=== PATIENT | female | born 2000 | race Caucasian/White ===

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

== ENCOUNTER 2018-06-21 11:07 | Emergency (ER) | payer BC, OTHER ==
[~2018-06-21] VITALS: Ht 167.6 cm; Wt 72.0 kg
[~2018-06-21 11:07] MED LIST: ACET-704 PO
[2018-06-21 11:16] VITALS: BP 111/59
[2018-06-21] MEDS ORDERED: IV NORMAL SALINE 1,000ML 1,000 ML IV SCH (11:46)
[2018-06-21] MEDS ORDERED: ONDANSETRON PF 4 MG/2 ML VIAL. IV ONE (12:00)
[2018-06-21 12:09] LABS: BASO # 0.1 x10^3/uL (0.0-0.2); BASO % 1 % (0-3); EOS # 0.3 x10^3/uL (0.0-0.7); EOS % 4 % (0-3); HEMOGLOBIN 13.1 g/dL (12.0-15.5); LYMPH # 2.5 x10^3/uL (1.0-4.8); LYMPH % 34 % (24-48); MEAN CORPUSCULAR HEMOGLOBIN 30 pg (25-35); MEAN CORPUSCULAR HGB CONC 34 g/dL (31-37); MEAN CORPUSCULAR VOLUME 90 fL (79-100); MONO # 0.8 x10^3/uL (0.0-1.1); MONO % 11 % (0-9); NEUT # 3.8 x10^3uL (1.8-7.7); NEUT % 51 % (31-73); PLATELET COUNT 250 x10^3/uL (140-400); RED BLOOD COUNT 4.31 x10^6/uL (3.50-5.40); RED CELL DISTRIBUTION WIDTH 13.3 % (11.5-14.5); WHITE BLOOD COUNT 7.5 x10^3/uL (4.0-11.0)
--- NOTE | 2018-06-21 12:17 | PHYS DOC ---
Past History Past Medical History: No Pertinent History Past Surgical History: , Tonsillectomy, Other Additional Past Surgical Histo: knee scope Smoking: Non-smoker Alcohol Use: None Drug Use: None Adult General Chief Complaint Chief Complaint: Constipation HPI HPI Patient is a 18 year old female who presents with complaining of constipation, nausea vomiting, and fever. Patient states she did not have a bowel movement for the last 2 weeks and usually she has bowel movement every other day. Patient states she is passing gas and burping a lot but did not have any bowel movement. She also complaining of nausea and vomiting and cramping since yesterday with multiple episodes of nausea and vomiting and states she had a temperature of 103 this morning. She denies urinary symptoms, vaginal bleeding or discharge, cough and congestion, sick contact. Review of Systems Review of Systems Constitutional: Reports fever Eyes: Denies change in visual acuity, redness, or eye pain [] HENT: Denies nasal congestion or sore throat [] Respiratory: Denies cough or shortness of breath [] Cardiovascular: No additional information not addressed in HPI [] GI: Reports abdominal pain, nausea, vomiting, constipation[] : Denies dysuria or hematuria [] Musculoskeletal: Denies back pain or joint pain [] Integument: Denies rash or skin lesions [] Neurologic: Denies headache, focal weakness or sensory changes [] Endocrine: Denies polyuria or polydipsia [] All other systems were reviewed and found to be within normal limits, except as documented in this note. Current Medications Current Medications Current Medications Medications (Trade) Dose Ordered Sig/Bi Start Time Stop Time Status Last Admin Dose Admin Ketorolac Tromethamine (Toradol 30mg Vial) 30 mg 1X ONCE 06/21/18 12:15 06/21/18 12:16 UNV Ondansetron HCl (Zofran) 4 mg 1X ONCE 06/21/18 12:00 06/21/18 12:01 DC Sodium Chloride 1,000 ml @ 1,000 mls/hr Q1H 06/21/18 11:46 06/21/18 12:45 Allergies Allergies Allergies Coded Allergies Type Severity Reaction Last Updated Verified No Known Allergies Allergy Unknown 04/16/17 Yes Physical Exam Physical Exam Constitutional: Well developed, well nourished, mild distress, non-toxic appearance. [] HENT: Normocephalic, atraumatic, oropharynx moist, no oral exudates, nose normal. [] Eyes: PERRLA, EOMI, conjunctiva normal, no discharge. [] Neck: Normal range of motion, no tenderness, supple, no stridor. [] Cardiovascular:Heart rate regular rhythm, no murmur [] Lungs & Thorax: Bilateral breath sounds clear to auscultation [] Abdomen: Bowel sounds normal, soft, suprapubic and left lower quadrant guarding , no tenderness, no masses, no pulsatile masses, patient refused rectal exam.[] Skin: Warm, dry, no erythema, no rash. [] Back: No tenderness, no CVA tenderness. [] Extremities: No tenderness, no cyanosis, no clubbing, ROM intact, no edema. [] Neurologic: Alert and oriented X 3, normal motor function, normal sensory function, no focal deficits noted. [] Psychologic: Affect normal, judgement normal, mood normal. [] Current Patient Data Vital Signs Vital Signs Date Time Temp Pulse Resp B/P (MAP) Pulse Ox O2 Delivery O2 Flow Rate FiO2 06/21/18 11:16 97.9 61 20 111/59 (76) 98 Room Air Lab Results Laboratory Tests Test 06/21/18 11:56 06/21/18 12:03 White Blood Count 7.5 x10^3/uL (4.0-11.0) Red Blood Count 4.31 x10^6/uL (3.50-5.40) Hemoglobin 13.1 g/dL (12.0-15.5) Hematocrit 39.0 % (36.0-47.0) Mean Corpuscular Volume 90 fL (79-100) Mean Corpuscular Hemoglobin 30 pg (25-35) Mean Corpuscular Hemoglobin Concent 34 g/dL (31-37) Red Cell Distribution Width 13.3 % (11.5-14.5) Platelet Count 250 x10^3/uL (140-400) Neutrophils (%) (Auto) 51 % (31-73) Lymphocytes (%) (Auto) 34 % (24-48) Monocytes (%) (Auto) 11 % (0-9) H Eosinophils (%) (Auto) 4 % (0-3) H Basophils (%) (Auto) 1 % (0-3) Neutrophils # (Auto) 3.8 x10^3uL (1.8-7.7) Lymphocytes # (Auto) 2.5 x10^3/uL (1.0-4.8) Monocytes # (Auto) 0.8 x10^3/uL (0.0-1.1) Eosinophils # (Auto) 0.3 x10^3/uL (0.0-0.7) Basophils # (Auto) 0.1 x10^3/uL (0.0-0.2) POC Urine HCG, Qualitative hcg negative (Negative) EKG EKG [] Radiology/Procedures Radiology/Procedures [address] [id number] IMAGING REPORT Signed PATIENT: ERIN PUGH ACCOUNT: [id number] : 2000 LOCATION: ER AGE: 18 SEX: F EXAM STATUS: REG ER ORD. PHYSICIAN: EMILI WOOTEN MD REASON: constipation PROCEDURE: ABDOMEN SUPINE & UPRIGHT EXAM: Abdomen 2 views. HISTORY: Abdominal pain and constipation. COMPARISON: None. FINDINGS: Supine and upright views of the abdomen are obtained. There is no pneumoperitoneum. There are no distended small bowel loops or significant air fluid levels. There is gas distally. An intrauterine device is noted. IMPRESSION: 1. Possible mild constipation. No evidence of obstruction. Electronically signed by: René Louie MD (06/21/2018 12:56 PM) [facility] DICTATED AND SIGNED BY: JL LOUIE MD DATE: 06/21/18 8715 CC: TATY AGUIRRE MD; EMILI WOOTEN MD ~ Course & Med Decision Making Course & Med Decision Making Pertinent Labs and Imaging studies reviewed. (See chart for details) evaluation of patient in ER showed 18-year-old female patient with complaining of constipation and nausea and vomiting and fever. Patient did not have fever in ER. Exam and labs was unremarkable. X-ray showed constipation. Plan discharge patient home to diagnose of constipation and prescription of mag citrate and GoLYTELY and Zofran. Dragon Disclaimer Dragon Disclaimer This electronic medical record was generated, in whole or in part, using a voice recognition dictation system. Departure Departure: Impression: Primary Impression: Constipation Additional Impressions: Abdominal pain Nausea and vomiting Disposition: HOME, SELF-CARE (at 1314) Condition: IMPROVED Referrals: TATY AGUIRRE MD (PCP) Patient Instructions: Constipation, Adult, Nausea and Vomiting Additional Instructions: Drink plenty of liquids Follow-up with your primary care physician in 3-5 days Return to ER if not getting better Scripts Magnesium Citrate (MAGNESIUM CITRATE) 296 Ml Solution 296 ML PO ONCE, #296 ML Prov: EMILI WOOTEN MD 06/21/18 Ondansetron (ZOFRAN ODT) 4 Mg Tab.rapdis 1 TAB SL Q8HRS, #15 TAB Prov: EMILI WOOTEN MD 06/21/18 Peg 3350/Na Sulf,Bicarb,Cl/Kcl (GOLYTELY SOLUTION) 4,000 Ml Soln.recon 250 ML PO Q1HR, #1 MISC Prov: EMILI WOOTEN MD 06/21/18 Problem Qualifiers EMILI WOOTEN MD Jun 21, 2018 12:17
[2018-06-21 12:21] LABS: ALBUMIN 4.3 g/dL (3.4-5.0); ALBUMIN/GLOBULIN RATIO 1.6 (1.0-1.7); CALCIUM 9.4 mg/dL (8.5-10.1); CREATININE 0.7 mg/dL (0.6-1.0); GFR 106.7; POTASSIUM 4.1 mmol/L (3.5-5.1); TOTAL BILIRUBIN 0.6 mg/dL (0.2-1.0)
[2018-06-21 12:29] LABS: BILIRUBIN,URINE NEG (NEG); CLARITY,URINE HAZY; COLOR,URINE YELLOW; GLUCOSE,URINE NEG (NEG); NITRITE,URINE NEG (NEG); UROBILINOGEN,URINE 2 mg/dL (0.2 mg/dL)
[2018-06-21] MEDS ORDERED: KETOROLAC 30 MG/ML VIAL. IV ONE (12:30)
[2018-06-21 12:37] LABS: AMPHETAMINE/METHAMPHETAMINE NEG (NEG); BARBITURATES NEG (NEG); BENZODIAZEPINES NEG (NEG); CANNABINOIDS NEG (NEG); COCAINE NEG (NEG); METHADONE NEG (NEG); OPIATES NEG (NEG); PHENCYCLIDINE NEG (NEG)
--- NOTE | 2018-06-21 12:59 | RAD ---
EXAM: Abdomen 2 views. HISTORY: Abdominal pain and constipation. COMPARISON: None. FINDINGS: Supine and upright views of the abdomen are obtained. There is no pneumoperitoneum. There are no distended small bowel loops or significant air fluid levels. There is gas distally. An intrauterine device is noted. IMPRESSION: 1. Possible mild constipation. No evidence of obstruction. Electronically signed by: René Louie MD (06/21/2018 12:56 PM) [facility]
[2018-06-21] MEDS ORDERED: PEG4000S8 PO (13:17)
[2018-06-21] MEDS ORDERED: MAGN296S9 PO (13:17)
[2018-06-21] MEDS ORDERED: ONDA4TAB10 SL (13:17)
== END 2018-06-21 13:30 | disposition home or self-care (01) ==
LOC: ER 11:07
DX: K59.00 Constipation, unspecified (principal); R11.2 Nausea with vomiting, unspecified; R10.32 Left lower quadrant pain; Z98.890 Other specified postprocedural states
CPT/HCPCS: 36415; 74021; 80053; 80307; 81003; 81025; 83690; 85025; 96361; 96374; 96375; 99285; J1885; J2405; G0479; J7030

== ENCOUNTER 2019-02-11 19:27 | Emergency (ER) | payer SELFPAY ==
[~2019-02-11] VITALS: Ht 167.6 cm; Wt 63.6 kg
[~2019-02-11 19:27] MED LIST changes: +MAGN296S9 PO; +ONDA4TAB10 SL; +PEG4000S8 PO
--- NOTE | 2019-02-11 19:35 | ED.ADGEN ---
Past History Past Medical History: No Pertinent History Past Surgical History: , Tonsillectomy, Other Additional Past Surgical Histo: knee scope Smoking: Non-smoker Alcohol Use: None Drug Use: None Adult General Chief Complaint Chief Complaint ".. I ve been vomiting all the time.. 8 times today.. I vomit with smell of food.. site of food.. and just vomit.. almost like I was .. but I did 4 tests they were negative.. I did try to eat a cheese burger.. but I vomited right up..." [facility] HPI Patient is a 19 year old female who presents with above hx and complaints generalized abdomen pain. Patient's symptoms been present the past 2 days. Patient currently rates her pain as 7 out of 10. Nothing makes the pain better. Complains of some localization of pain to epigastric and right upper quadrant. There is some exacerbation of pain with deep breaths and cough.. No history immunosuppression. No history of travel. No history of trauma. No history of gallbladder problems with her family members. Patient does have a history of m igraines. Patient normally follows with Dr. Bettencourt. Review of Systems Review of Systems Constitutional: Denies fever or chills [] Eyes: Denies change in visual acuity, redness, or eye pain [] HENT: Denies nasal congestion or sore throat [] Respiratory: Denies cough or shortness of breath [] Cardiovascular: No additional information not addressed in HPI [] GI: Complaints of right upper quadrant abdominal pain, nausea, vomiting,. Pt. denies bloody stools or diarrhea [] : Denies dysuria or hematuria [] Musculoskeletal: Denies back pain or joint pain [] Integument: Denies rash or skin lesions [] Neurologic: Denies headache, focal weakness or sensory changes [] Endocrine: Denies polyuria or polydipsia [] All other systems were reviewed and found to be within normal limits, except as documented in this note. Family History Family History Noncontributory Current Medications Current Medications Current Medications Medications (Trade) Dose Ordered Sig/Bi Start Time Stop Time Status Last Admin Dose Admin Ceftriaxone Sodium 1 gm/ Sodium Chloride 50 ml @ 100 mls/hr 1X ONCE 02/11/19 20:30 02/11/19 20:59 DC 02/11/19 21:25 100 MLS/HR Ceftriaxone Sodium (Rocephin) 1 gm STK-MED ONCE 02/11/19 21:24 02/11/19 21:25 DC Cephalexin HCl (Keflex) 500 mg 1X ONCE 02/11/19 22:30 02/11/19 22:31 DC 02/11/19 22:22 500 MG Famotidine (Pepcid Vial) 20 mg 1X ONCE 02/11/19 19:45 02/11/19 19:48 DC 02/11/19 19:59 20 MG Lactated Ringer's 1,000 ml @ 1,000 mls/hr Q1H 02/11/19 19:37 02/11/19 20:36 DC 02/11/19 19:59 1,000 MLS/HR Magnesium Hydroxide (Milk Of Magnesia) 2,400 mg 1X ONCE 02/11/19 20:45 02/11/19 20:46 DC 02/11/19 21:26 2,400 MG Ondansetron HCl (Zofran) 8 mg 1X ONCE 02/11/19 19:45 02/11/19 19:48 DC 02/11/19 19:59 8 MG Potassium Chloride (KCl Oral Soln) 40 meq 1X ONCE 02/11/19 20:45 02/11/19 20:46 DC 02/11/19 21:26 40 MEQ Sodium Chloride 50 ml @ As Directed STK-MED ONCE 02/11/19 21:23 02/11/19 21:24 DC Allergies Allergies Allergies Coded Allergies Type Severity Reaction Last Updated Verified codeine Allergy Intermediate 06/21/18 Yes Physical Exam Physical Exam Constitutional: Well developed, well nourished, reports acute distress, non- toxic appearance. [] HENT: Normocephalic, atraumatic, bilateral external ears normal, oropharynx moist, no oral exudates, nose normal. [] Eyes: PERRLA, EOMI, conjunctiva normal, no discharge. [] Neck: Normal range of motion, no tenderness, supple, no stridor. [] Cardiovascular:Heart rate regular rhythm, no murmur [] Lungs & Thorax: Bilateral breath sounds equal apex with some scattered wheezes auscultation [] Abdomen: Bowel sounds normal, soft, epigastric and right upper tenderness on maya ound, complains of generalized pain to abdomen, no masses, no pulsatile masses. [] Patient declined pelvic and rectal exam Skin: Warm, dry, no erythema, no rash. [] Back: No tenderness, no CVA tenderness. [] Extremities: No tenderness, no cyanosis, no clubbing, ROM intact, no edema. [] No psoas sign. Neurologic: Alert and oriented X 3, normal motor function, normal sensory function, no focal deficits noted. [] Psychologic: Affect anxious, judgement normal, mood normal. [] Current Patient Data Vital Signs Vital Signs Date Time Temp Pulse Resp B/P (MAP) Pulse Ox O2 Delivery O2 Flow Rate FiO2 02/11/19 19:44 98.3 104 16 99 Room Air Lab Results Laboratory Tests Test 02/11/19 19:52 02/11/19 20:01 White Blood Count 9.8 x10^3/uL (4.0-11.0) Red Blood Count 4.40 x10^6/uL (3.50-5.40) Hemoglobin 13.2 g/dL (12.0-15.5) Hematocrit 39.3 % (36.0-47.0) Mean Corpuscular Volume 89 fL (79-100) Mean Corpuscular Hemoglobin 30 pg (25-35) Mean Corpuscular Hemoglobin Concent 34 g/dL (31-37) Red Cell Distribution Width 13.0 % (11.5-14.5) Platelet Count 230 x10^3/uL (140-400) Neutrophils (%) (Auto) 57 % (31-73) Lymphocytes (%) (Auto) 32 % (24-48) Monocytes (%) (Auto) 9 % (0-9) Eosinophils (%) (Auto) 1 % (0-3) Basophils (%) (Auto) 1 % (0-3) Neutrophils # (Auto) 5.5 x10^3uL (1.8-7.7) Lymphocytes # (Auto) 3.2 x10^3/uL (1.0-4.8) Monocytes # (Auto) 0.9 x10^3/uL (0.0-1.1) Eosinophils # (Auto) 0.1 x10^3/uL (0.0-0.7) Basophils # (Auto) 0.1 x10^3/uL (0.0-0.2) Urine Collection Type Unknown Urine Color Yellow Urine Clarity Hazy Urine pH 6.0 Urine Specific [place] 1.010 Urine Protein Neg (NEG-TRACE) Urine Glucose (UA) Neg mg/dL (NEG) Urine Ketones (Stick) Neg mg/dL (NEG) Urine Blood Trace (NEG) Urine Nitrite Neg (NEG) Urine Bilirubin Neg (NEG) Urine Urobilinogen Dipstick 0.2 mg/dL (0.2 mg/dL) Urine Leukocyte Esterase Trace (NEG) Urine RBC Occ /HPF (0-2) Urine WBC 1-4 /HPF (0-4) Urine Squamous Epithelial Cells Occ /LPF Urine Bacteria 0 /HPF (0-FEW) Maternal Serum HCG Beta Subunit < 1 mIU/mL (0-6) Sodium Level 141 mmol/L (136-145) Potassium Level 3.3 mmol/L (3.5-5.1) L Chloride Level 104 mmol/L (98-107) Carbon Dioxide Level 26 mmol/L (21-32) Anion Gap 11 (6-14) Blood Urea Nitrogen 6 mg/dL (7-20) L Creatinine 0.7 mg/dL (0.6-1.0) Estimated GFR (Cockcroft-Gault) 105.6 Glucose Level 83 mg/dL (70-99) Calcium Level 9.6 mg/dL (8.5-10.1) Total Bilirubin 0.6 mg/dL (0.2-1.0) Direct Bilirubin 0.1 mg/dL (0.0-0.2) Aspartate Amino Transferase (AST) 17 U/L (15-37) Alanine Aminotransferase (ALT) 19 U/L (14-59) Alkaline Phosphatase 58 U/L (46-116) Troponin I Quantitative < 0.017 ng/mL (0-0.055) Total Protein 7.4 g/dL (6.4-8.2) Albumin 4.6 g/dL (3.4-5.0) Amylase Level 30 U/L (25-115) Lipase 74 U/L (73-393) Urine Opiates Screen Neg (NEG) Urine Methadone Screen Neg (NEG) Urine Barbiturates Neg (NEG) Urine Phencyclidine Screen Neg (NEG) Urine Amphetamine/Methamphetamine Pos (NEG) Urine Benzodiazepines Screen Neg (NEG) Urine Cocaine Screen Neg (NEG) Urine Cannabinoids Screen Neg (NEG) Urine Ethyl Alcohol Neg (NEG) POC Urine HCG, Qualitative hcg negative (Negative) EKG EKG My interpretation EKG shows. Shows a sinus rate of 89. Some nonspecific anterior septal changes. But no findings acute STEMI of contralateral changes[] Radiology/Procedures Radiology/Procedures My interpretation of acute abdomen film shows no acute cardiopulmonary findings. No free air in the diaphragm. Nonobstructive bowel gas pattern. See formal report when available[] Course & Med Decision Making Course & Med Decision Making Pertinent Labs and Imaging studies reviewed. (See chart for details) Patient's discomfort and nausea and vomiting have resolved during ED visit. Patient demanding discharge. In spite of instructions for clear fluid diet patient was observed eating solids and sunflower seeds. A she encouraged to stay on a clear fluid diet only for the next 2 days. No solids or milk products. Push fruit juices. Follow-up primary care. Take Keflex 500 mg 3 times a day. Follow-up urine cultures. Return if any concerns. Patient takes Zantac 150 mg twice day. [] Final Impression Final Impression 1. Nausea and Vomiting[] 2. Abdomen pain 3. Mild hypokalemia 4. Urinary tract infection 5. Drug screen positive for methamphetamine 6. History of tobacco use. 7. Suspect gastritis/GERD Dragon Disclaimer Dragon Disclaimer This electronic medical record was generated, in whole or in part, using a voice recognition dictation system. Discharge Summary Visit Information Final Diagnosis Problems Medical Problems: (1) Gastritis Status: Acute (2) UTI (urinary tract infection) Status: Acute (3) Vomiting Status: Acute Brief Hospital Course Allergies Allergies Coded Allergies Type Severity Reaction Last Updated Verified codeine Allergy Intermediate 06/21/18 Yes Vital Signs Vital Signs Date Time Temp Pulse Resp B/P (MAP) Pulse Ox O2 Delivery O2 Flow Rate FiO2 02/11/19 19:44 98.3 104 16 99 Room Air Lab Results Laboratory Tests Test 02/11/19 19:52 02/11/19 20:01 White Blood Count 9.8 x10^3/uL (4.0-11.0) Red Blood Count 4.40 x10^6/uL (3.50-5.40) Hemoglobin 13.2 g/dL (12.0-15.5) Hematocrit 39.3 % (36.0-47.0) Mean Corpuscular Volume 89 fL (79-100) Mean Corpuscular Hemoglobin 30 pg (25-35) Mean Corpuscular Hemoglobin Concent 34 g/dL (31-37) Red Cell Distribution Width 13.0 % (11.5-14.5) Platelet Count 230 x10^3/uL (140-400) Neutrophils (%) (Auto) 57 % (31-73) Lymphocytes (%) (Auto) 32 % (24-48) Monocytes (%) (Auto) 9 % (0-9) Eosinophils (%) (Auto) 1 % (0-3) Basophils (%) (Auto) 1 % (0-3) Neutrophils # (Auto) 5.5 x10^3uL (1.8-7.7) Lymphocytes # (Auto) 3.2 x10^3/uL (1.0-4.8) Monocytes # (Auto) 0.9 x10^3/uL (0.0-1.1) Eosinophils # (Auto) 0.1 x10^3/uL (0.0-0.7) Basophils # (Auto) 0.1 x10^3/uL (0.0-0.2) Urine Collection Type Unknown Urine Color Yellow Urine Clarity Hazy Urine pH 6.0 Urine Specific [place] 1.010 Urine Protein Neg (NEG-TRACE) Urine Glucose (UA) Neg mg/dL (NEG) Urine Ketones (Stick) Neg mg/dL (NEG) Urine Blood Trace (NEG) Urine Nitrite Neg (NEG) Urine Bilirubin Neg (NEG) Urine Urobilinogen Dipstick 0.2 mg/dL (0.2 mg/dL) Urine Leukocyte Esterase Trace (NEG) Urine RBC Occ /HPF (0-2) Urine WBC 1-4 /HPF (0-4) Urine Squamous Epithelial Cells Occ /LPF Urine Bacteria 0 /HPF (0-FEW) Maternal Serum HCG Beta Subunit < 1 mIU/mL (0-6) Sodium Level 141 mmol/L (136-145) Potassium Level 3.3 mmol/L (3.5-5.1) Chloride Level 104 mmol/L (98-107) Carbon Dioxide Level 26 mmol/L (21-32) Anion Gap 11 (6-14) Blood Urea Nitrogen 6 mg/dL (7-20) Creatinine 0.7 mg/dL (0.6-1.0) Estimated GFR (Cockcroft-Gault) 105.6 Glucose Level 83 mg/dL (70-99) Calcium Level 9.6 mg/dL (8.5-10.1) Total Bilirubin 0.6 mg/dL (0.2-1.0) Direct Bilirubin 0.1 mg/dL (0.0-0.2) Aspartate Amino Transf (AST/SGOT) 17 U/L (15-37) Alanine Aminotransferase (ALT/SGPT) 19 U/L (14-59) Alkaline Phosphatase 58 U/L (46-116) Troponin I Quantitative < 0.017 ng/mL (0-0.055) Total Protein 7.4 g/dL (6.4-8.2) Albumin 4.6 g/dL (3.4-5.0) Amylase Level 30 U/L (25-115) Lipase 74 U/L (73-393) Urine Opiates Screen Neg (NEG) Urine Methadone Screen Neg (NEG) Urine Barbiturates Neg (NEG) Urine Phencyclidine Screen Neg (NEG) Urine Amphetamine/Methamphetamine Pos (NEG) Urine Benzodiazepines Screen Neg (NEG) Urine Cocaine Screen Neg (NEG) Urine Cannabinoids Screen Neg (NEG) Urine Ethyl Alcohol Neg (NEG) Bedside Urine HCG, Qualitative hcg negative (Negative) Brief Hospital Course Ms. Sol is a 19 old female who presented with Nausea/Vomiting and Abd. pain. Discharge Information Condition at Discharge: Improved, Stable Disposition/Orders: D/C to Home Dischare Medications Current Medications Lactated Ringer's 1,000 ml @ 1,000 mls/hr Q1H IV Last administered on 02/11at 19:59; Admin Dose 1,000 MLS/HR; Start 02/11/19 at 19:37; Stop 02/11/19 at 20:36; Status DC Ondansetron HCl (Zofran) 8 mg 1X ONCE IV Last administered on 02/11/19at 19:59; Admin Dose 8 MG; Start 02/11/19 at 19:45; Stop 02/11/19 at 19:48; Status DC Famotidine (Pepcid Vial) 20 mg 1X ONCE IVP Last administered on 02/11/19at 19:59; Admin Dose 20 MG; Start 02/11/19 at 19:45; Stop 02/11/19 at 19:48; Status DC Ceftriaxone Sodium 1 gm/ Sodium Chloride 50 ml @ 100 mls/hr 1X ONCE IV Last administered on 02/11/19at 21:25; Admin Dose 100 MLS/HR; Start 02/11/19 at 20:30; Stop 02/11/19 at 20:59; Status DC Magnesium Hydroxide (Milk Of Magnesia) 2,400 mg 1X ONCE PO Last administered on 02/11/19at 21:26; Admin Dose 2,400 MG; Start 02/11/19 at 20:45; Stop 02/11/19 at 20:46; Status DC Potassium Chloride (KCl Oral Soln) 40 meq 1X ONCE PO Last administered on 02/11/19at 21:26; Admin Dose 40 MEQ; Start 02/11/19 at 20:45; Stop 02/11/19 at 20:46; Status DC Sodium Chloride 50 ml @ As Directed STK-MED ONCE .ROUTE ; Start 02/11/19 at 21:23; Stop 02/11/19 at 21:24; Status DC Ceftriaxone Sodium (Rocephin) 1 gm STK-MED ONCE .ROUTE ; Start 02/11/19 at 21:24; Stop 02/11/19 at 21:25; Status DC Cephalexin HCl (Keflex) 500 mg 1X ONCE PO Last administered on 02/11/19at 22:22; Admin Dose 500 MG; Start 02/11/19 at 22:30; Stop 02/11/19 at 22:31; Status DC Active Scripts Active Zantac (Ranitidine Hcl) 150 Mg Tablet 150 Mg PO BID 30 Days Zofran (Ondansetron Hcl) 8 Mg Tablet 8 Mg PO QIDPRN PRN Keflex (Cephalexin) 500 Mg Capsule 500 Mg PO TID 7 Days Magnesium Citrate 296 Ml Solution 296 Ml PO ONCE Zofran Odt (Ondansetron) 4 Mg Tab.rapdis 1 Tab SL Q8HRS Golytely Solution (Peg 3350/Na Sulf,Bicarb,Cl/Kcl) 4,000 Ml Soln.recon 250 Ml PO Q1HR Tylenol With Codeine #3 Tablet (Acetaminophen With Codeine) 1 Each Tablet 1 Tab PO Q6HRS PRN 1 Days Dragon Disclaimer This chart was dictated in whole or in part using Voice Recognition software in a busy, high-work load, and often noisy Emergency Department environment. It may contain unintended and wholly unrecognized errors or omissions. MEMO BYRD MD February 11, 2019 19:34
[2019-02-11] MEDS ORDERED: IV RINGERS SOLUTION,LACTATED 1,000 ML IV SCH (19:37)
[2019-02-11] MEDS ORDERED: FAMOTIDINE 20 MG/2 ML VIAL IVP ONE (19:45)
[2019-02-11] MEDS ORDERED: ONDANSETRON PF 4 MG/2 ML VIAL. IV ONE (19:45)
--- NOTE | 2019-02-11 20:07 | EKG ---
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
[2019-02-11 20:14] LABS: BACTERIA,URINE 0 /HPF (0-FEW); BASO # 0.1 x10^3/uL (0.0-0.2); BASO % 1 % (0-3); BILIRUBIN,URINE NEG (NEG); CLARITY,URINE HAZY; COLOR,URINE YELLOW; EOS # 0.1 x10^3/uL (0.0-0.7); EOS % 1 % (0-3); GLUCOSE,URINE NEG (NEG); HEMATOCRIT 39.3 % (36.0-47.0); HEMOGLOBIN 13.2 g/dL (12.0-15.5); LYMPH # 3.2 x10^3/uL (1.0-4.8); LYMPH % 32 % (24-48); MEAN CORPUSCULAR HEMOGLOBIN 30 pg (25-35); MEAN CORPUSCULAR HGB CONC 34 g/dL (31-37); MEAN CORPUSCULAR VOLUME 89 fL (79-100); MONO # 0.9 x10^3/uL (0.0-1.1); MONO % 9 % (0-9); NEUT # 5.5 x10^3uL (1.8-7.7); NEUT % 57 % (31-73); NITRITE,URINE NEG (NEG); PLATELET COUNT 230 x10^3/uL (140-400); RBC,URINE OCC /HPF (0-2); SQUAMOUS EPITHELIAL CELL,UR OCC /LPF; UROBILINOGEN,URINE 0.2 mg/dL (0.2 mg/dL); WHITE BLOOD COUNT 9.8 x10^3/uL (4.0-11.0)
[2019-02-11 20:17] LABS: AMPHETAMINE/METHAMPHETAMINE POS (NEG); BARBITURATES NEG (NEG); BENZODIAZEPINES NEG (NEG); CANNABINOIDS NEG (NEG); COCAINE NEG (NEG); METHADONE NEG (NEG); OPIATES NEG (NEG); PHENCYCLIDINE NEG (NEG)
[2019-02-11 20:25] LABS: ALBUMIN 4.6 g/dL (3.4-5.0); CALCIUM 9.6 mg/dL (8.5-10.1); CREATININE 0.7 mg/dL (0.6-1.0); DIRECT BILIRUBIN 0.1 mg/dL (0.0-0.2); GFR 105.6; POTASSIUM 3.3 mmol/L (3.5-5.1); TOTAL BILIRUBIN 0.6 mg/dL (0.2-1.0); TOTAL PROTEIN 7.4 g/dL (6.4-8.2)
[2019-02-11] MEDS ORDERED: RANI150T21 PO (20:38)
[2019-02-11] MEDS ORDERED: CEPH-264 PO (20:38)
[2019-02-11] MEDS ORDERED: ONDA8TAB9 PO (20:38)
[2019-02-11] MEDS ORDERED: MAGNESIUM HYDROXIDE 2,400 MG/30 ML ORAL.SUSP. PO ONE (20:45)
[2019-02-11] MEDS ORDERED: POTASSIUM CHLORIDE 20 MEQ/15 ML ORAL LIQUID. PO ONE (20:45)
[2019-02-11] MEDS ORDERED: IV NORMAL SALINE 50ML 50 ML ONE (21:23)
[2019-02-11] MEDS ORDERED: cefTRIAXone SODIUM 1 GM VIAL ONE (21:24)
[2019-02-11] MEDS ORDERED: CEPHALEXIN 250 MG CAPSULE PO ONE (22:30)
--- NOTE | 2019-02-12 00:57 | RAD ---
Acute abdominal series to include a PA chest radiograph 02/11/2019 Clinical History: Nausea and vomiting. Abdominal pain. A PA digital radiograph of the chest was obtained. Supine and erect AP digital radiographs of the abdomen/pelvis were obtained. Comparison study is dated 06/21/2018. The cardiac and mediastinal silhouettes are within normal limits in size and configuration. No pulmonary infiltrate is seen. No pleural effusion or pneumothorax is noted. The abdominal bowel gas pattern is nonobstructive. A moderate amount stool seen throughout the colon. There is no evidence of free air. No radiopaque calculus is seen. The osseous structures are grossly intact. Impression: Nonobstructive bowel gas pattern. Electronically signed by: Tony Goss MD (02/12/2019 12:54 AM) [facility]
== END 2019-02-11 22:20 | disposition home or self-care (01) ==
LOC: ER 19:27
DX: K29.70 Gastritis, unspecified, without bleeding (principal); N39.0 Urinary tract infection, site not specified; E87.6 Hypokalemia; F15.10 Other stimulant abuse, uncomplicated; Z98.890 Other specified postprocedural states; Z88.5 Allergy status to narcotic agent
CPT/HCPCS: 36415; 74022; 80048; 80076; 80307; 81001; 81025; 82150; 83690; 84484; 84702; 85025; 87086; 93005; 96361; 96365; 96375; 99285; J0696; J2405; J3490; J7120; 87186

== ENCOUNTER → 2019-07-07 | Outpatient (CLI) | payer MEDICAID ==
[2019-02-11 19:44] VITALS: BP 127/66
[~2019-07-07] MED LIST changes: +CEPH-264 PO; +ONDA8TAB9 PO; +RANI-376 PO
--- NOTE | 2019-07-07 15:01 | RAD ---
EXAM: Pelvic sonogram. HISTORY: Dysfunctional uterine bleeding. TECHNIQUE: Sonographic imaging of the pelvis was performed. COMPARISON: None. FINDINGS: The uterus measures 7.5 x 3.8 x 4.2 cm. The endometrial stripe measures 3 mm in thickness. There is complex fluid within the endometrial cavity in the lower uterine segment. There is a 3.6 cm simple appearing right ovarian cyst. There are small ovarian follicles. There is normal blood flow within both ovaries. There is a small amount of free fluid with internal echoes within the cul-de-sac. IMPRESSION: 1. 3.6 cm right ovarian cyst. 2. Small amount of complex fluid within the endometrial cavity, likely due to blood products given a history of dysfunctional uterine bleeding. The endometrial stripe is normal in thickness. 3. Small amount of complex free fluid within the cul-de-sac. Electronically signed by: Piedad Mendoza MD (07/07/2019 2:58 PM) [facility]
== END | disposition home or self-care (01) ==
LOC: US 11:47
PROVIDERS: ATTEND Physician Assistant Medical
DX: N83.201 Unspecified ovarian cyst, right side (principal); N93.8 Other specified abnormal uterine and vaginal bleeding
CPT/HCPCS: 76830; 76856

== ENCOUNTER 2020-05-31 19:01 | Emergency (ER) | payer MEDICAID ==
[~2020-05-31] VITALS: Ht 170.2 cm; Wt 72.7 kg
[~2020-05-31 19:01] MED LIST changes: +MAGN296S68 PO; -MAGN296S9 PO
[2020-05-31] MEDS ORDERED: IV NORMAL SALINE 1,000ML 1,000 ML IV ONE (19:15)
[2020-05-31] MEDS ORDERED: PANTOPRAZOLE IV 40 MG VIAL. IVP ONE (19:30)
[2020-05-31] MEDS ORDERED: FAMOTIDINE 20 MG/2 ML VIAL IVP ONE (19:30)
[2020-05-31] MEDS ORDERED: METOCLOPRAMIDE 10 MG TABLET PO ONE (19:30)
[2020-05-31] MEDS ORDERED: MORPHINE SULFATE 4 MG/ML DISP.SYRIN. IV ONE (19:30)
--- NOTE | 2020-05-31 19:35 | PHYS DOC ---
Past History Past Medical History: Endometriosis Past Surgical History: , Other Additional Past Surgical Histo: uterine ablasion, knee x 3 Smoking: Non-smoker Alcohol Use: Occasionally Drug Use: None General Adult EDM: Chief Complaint: NAUSEA/VOMITING/DIARRHEA HPI: HPI: The history was obtained from the patient. Patient is a 20-year-old female with past medical history notable for section and endometriosis Who presents with a chief complaint of epigastric abdominal pain for the past 24 hours. Patient states she woke up yesterday with epigastric sharp pain that is nonradiating. States eating food makes the pain worse. She was not able eat dinner night due to the discomfort. She notes 3 episodes of nonbloody nonbilious emesis today. Denies any history of gastritis, dyspepsia, or biliary colic. Denies any history of gallbladder issues. Denies chest pain or shortness breath. States that she did have a syncopal event while in the shower 4 days ago. She denies any prodrome symptoms leading up to this. She is never syncopized before. She is unsure of the first day of her last menstrual period. Denies any vaginal bleeding or discharge. Denies urinary symptoms. Denies fevers. Has not tried medicine at home to help. Denies daily alcohol consumption or drug use. Endorses tobacco abuse. No other complaints. Review of Systems: Review of Systems: Constitutional: Denies fever or chills Eyes: Denies change in visual acuity HENT: Denies nasal congestion or sore throat Respiratory: Denies cough or shortness of breath Cardiovascular: Positive for syncope GI: Positive for abdominal pain and vomiting : Denies dysuria Musculoskeletal: Denies back pain or joint pain Integument: Denies rash Neurologic: Denies headache, focal weakness or sensory changes Endocrine: Denies polyuria or polydipsia Lymphatic: Denies swollen glands Psychiatric: Denies depression or anxiety Heart Score: Risk Factors: Risk Factors: DM, Current or recent (<one month) smoker, HTN, HLP, family history of CAD, obesity. Risk Scores: Score 0 - 3: 2.5% MACE over next 6 weeks - Discharge Home Score 4 - 6: 20.3% MACE over next 6 weeks - Admit for Clinical Observation Score 7 - 10: 72.7% MACE over next 6 weeks - Early Invasive Strategies Current Medications: Current Meds: Current Medications Medications (Trade) Dose Ordered Sig/Bi Start Time Stop Time Status Last Admin Dose Admin Famotidine (Pepcid Vial) 20 mg 1X ONCE 05/31/20 19:30 05/31/20 19:31 UNV Metoclopramide HCl (Reglan) 10 mg 1X ONCE 05/31/20 19:30 05/31/20 19:31 UNV Morphine Sulfate (Morphine 4mg Syringe) 4 mg 1X ONCE 05/31/20 19:30 05/31/20 19:31 UNV Pantoprazole Sodium (Protonix Vial) 40 mg 1X ONCE 05/31/20 19:30 05/31/20 19:31 UNV Sodium Chloride 1,000 ml @ 1,000 mls/hr 1X ONCE 05/31/20 19:15 05/31/20 20:14 Allergies: Allergies: Allergies Coded Allergies Type Severity Reaction Last Updated Verified codeine Allergy Intermediate 06/21/18 Yes Physical Exam: PE: Constitutional: Well developed, well nourished, no acute distress, non-toxic appearance. [] HENT: Normocephalic, atraumatic, bilateral external ears normal, oropharynx moist, no oral exudates, nose normal. [] Eyes: PERRLA, EOMI, conjunctiva normal, no discharge. [] Neck: Normal range of motion, no tenderness, supple, no stridor. [] Cardiovascular:Heart rate regular rhythm, no murmur [] Lungs & Thorax: Bilateral breath sounds clear to auscultation [] Abdomen: Mild epigastric tenderness to palpation. No involuntary guarding or rigidity noted. No acute peritonitis. Skin: Warm, dry, no erythema, no rash. [] Back: No tenderness, no CVA tenderness. [] Extremities: No tenderness, no cyanosis, no clubbing, ROM intact, no edema. [] Neurologic: Alert with intact cognitive function. No aphasia, dysarthria, or neglect. GCS 15. Pupils 3 mm briskly reactive b/l. No APD present. Cranial nerves 2-12 grossly intact; no facial asymmetry present, tongue midline, shoulder shrugging strength intact. Strength 5/5 and symmetric throughout. Light touch sensation intact throughout. Cerebellar testing appropriate without evidence of dysdiadochokinesia. DTR's 2+ in all 4 extremities. Negative pronator drift bilaterally. Gait normal Psychologic: Affect normal, judgement normal, mood normal. [] Current Patient Data: Labs: Laboratory Tests Test 05/31/20 19:26 POC Urine HCG, Qualitative hcg negative (Negative) Vital Signs: Vital Signs Date Time Temp Pulse Resp B/P (MAP) Pulse Ox O2 Delivery O2 Flow Rate FiO2 05/31/20 19:05 97.7 66 18 99/53 (68) 99 Room Air EKG: EKG: [] EKG consistent with normal sinus rhythm. Ventricular rate of 62 bpm. [place] normal. Flipped T waves noted in lead III and V3. No acute ischemic changes noted. Radiology/Procedures: Radiology/Procedures: [][address] [address] IMAGING REPORT Signed PATIENT: ERIN BARRAZA ACCOUNT: [id number] : 2000 LOCATION: ER AGE: 20 SEX: F EXAM STATUS: REG ER ORD. PHYSICIAN: MADDI PRADHAN DO REASON: epigastric pain with vomiting PROCEDURE: CT ABD PELV W/ IV CONTRST ONLY EXAM: CT Abdomen and Pelvis with IV contrast CLINICAL HISTORY: epigastric pain with Vomiting COMPARISON: 07/11/2015 TECHNIQUE: Helical CT of the abdomen and pelvis was performed following the administration of IV contrast. Axial, coronal and sagittal reformatted images were generated. ---PQRS compliance statement - One or more of the following individualized dose reduction techniques were utilized for this study: 1. Automated exposure control 2. Adjustment of the mA and/or kV according to patient size 3. Use of iterative reconstruction technique--- FINDINGS: Lower chest: Clear Abdomen and pelvis: Liver and biliary system: No focal liver lesion. Gallbladder is normal. No biliary ductal dilatation. Spleen: Unremarkable Pancreas: Unremarkable Adrenal glands: Unremarkable Kidneys: Symmetric nephrograms. No focal renal lesion. No hydronephrosis. No hydroureter. Lymph nodes/retroperitoneum: No abdominal or pelvic lymphadenopathy. Vessels: Aorta is normal in caliber. Circumaortic left renal vein. Bowel/Peritoneal cavity: Appendix is normal. Moderate colonic stool content is seen. No small or large bowel dilatation. No bowel obstruction. Trace pelvic ascites may be physiologic. Mild apparent thickening of the gastric antrum. Right adnexal cyst measures 3.5 cm. Abdominal wall: Trace fat-containing periumbilical hernia is seen. Bladder: Unremarkable trace free pelvic fluid Bones: No aggressive osseous lesion is seen. IMPRESSION: 1. Mild thickening of the gastric antrum may be related to under distended state although gastritis may also result in this appearance. 2. Right adnexal cyst measures 2.5 cm. This can be further assessed by ultrasound. 3. Trace pelvic ascites likely physiologic Electronically signed by: Denver Mondragon MD (05/31/2020 9:12 PM) [facility] DICTATED AND SIGNED BY: DENVER MONDRAGON MD DATE: 05/31/202111 CC: MIGUEL A ANAYA; MADDI PRADHAN DO ~ Course & Med Decision Making: Course & Med Decision Making Pertinent Labs and Imaging studies reviewed. (See chart for details) [] Patient is an overall well-appearing 20-year-old female who presents with chief complaint of diffuse abdominal discomfort associated with nausea. Initial vital signs unremarkable. EKG was obtained given her report of syncope 4 days ago. This was unremarkable. Labs grossly unremarkable. CT imaging reveals no acute surgical abnormality. Prior to being able to discuss results of labs and imaging with the patient she did department emergency department. She did elect to leave AGAINST MEDICAL ADVICE prior to my final repeat evaluation. Za Disclaimer: Za Disclaimer: This electronic medical record was generated, in whole or in part, using a voice recognition dictation system. Departure Departure: Impression: Primary Impression: Abdominal pain Qualified Codes: R10.84 - Generalized abdominal pain Disposition: AGAINST MEDICAL ADVICE Condition: STABLE Referrals: MIGUEL A ANAYA (PCP) Justification of Admission: Justification of Admission: Justification of Admission Dx: N/A MADDI PRADHAN DO May 31, 2020 19:35
[2020-05-31] MEDS ORDERED: METOCLOPRAMIDE HCL 10 MG/2 ML VIAL. ONE (19:42)
[2020-05-31] MEDS ORDERED: MORPHINE SULFATE 4 MG/ML DISP.SYRIN. ONE (19:42)
[2020-05-31] MEDS ORDERED: FAMOTIDINE 20 MG/2 ML VIAL ONE (19:42)
[2020-05-31] MEDS ORDERED: IOHEXOL 300 MG/ML 75 ML VIAL. IV ONE (19:45)
[2020-05-31] MEDS ORDERED: METOCLOPRAMIDE HCL 10 MG/2 ML VIAL. IVP ONE (20:00)
[2020-05-31 20:22] VITALS: BP 98/55
[2020-05-31 20:29] LABS: BASO # 0.1 x10^3/uL (0.0-0.2); BASO % 1 % (0-3); EOS # 0.3 x10^3/uL (0.0-0.7); EOS % 3 % (0-3); HEMATOCRIT 38.1 % (36.0-47.0); HEMOGLOBIN 12.8 g/dL (12.0-15.5); LYMPH # 2.7 x10^3/uL (1.0-4.8); LYMPH % 28 % (24-48); MEAN CORPUSCULAR HEMOGLOBIN 31 pg (25-35); MEAN CORPUSCULAR HGB CONC 34 g/dL (31-37); MEAN CORPUSCULAR VOLUME 93 fL (79-100); MONO % 10 % (0-9); NEUT # 5.7 x10^3uL (1.8-7.7); NEUT % 59 % (31-73); PLATELET COUNT 213 x10^3/uL (140-400); RED BLOOD COUNT 4.09 x10^6/uL (3.50-5.40); RED CELL DISTRIBUTION WIDTH 12.7 % (11.5-14.5); WHITE BLOOD COUNT 9.7 x10^3/uL (4.0-11.0)
[2020-05-31 20:58] LABS: BILIRUBIN,URINE NEG (NEG); CLARITY,URINE HAZY; COLOR,URINE YELLOW; GLUCOSE,URINE NEG (NEG)
[2020-05-31 20:58] LABS: CALCIUM 8.3 mg/dL (8.5-10.1); CREATININE 0.8 mg/dL (0.6-1.0); GFR 89.7; POTASSIUM 3.9 mmol/L (3.5-5.1)
[2020-05-31 20:59] LABS: NITRITE,URINE NEG (NEG); UROBILINOGEN,URINE 0.2 mg/dL (0.2 mg/dL)
[2020-05-31 21:10] LABS: ALBUMIN 3.5 g/dL (3.4-5.0); ALBUMIN/GLOBULIN RATIO 1.2 (1.0-1.7); MAGNESIUM 1.8 mg/dL (1.8-2.4); TOTAL BILIRUBIN 0.2 mg/dL (0.2-1.0); TOTAL PROTEIN 6.4 g/dL (6.4-8.2)
[2020-05-31 21:10] LABS: BACTERIA,URINE MOD /HPF (0-FEW); SQUAMOUS EPITHELIAL CELL,UR FEW /LPF
--- NOTE | 2020-05-31 21:15 | RAD ---
EXAM: CT Abdomen and Pelvis with IV contrast CLINICAL HISTORY: epigastric pain with Vomiting COMPARISON: 07/11/2015 TECHNIQUE: Helical CT of the abdomen and pelvis was performed following the administration of IV contrast. Axial, coronal and sagittal reformatted images were generated. ---PQRS compliance statement - One or more of the following individualized dose reduction techniques were utilized for this study: 1. Automated exposure control 2. Adjustment of the mA and/or kV according to patient size 3. Use of iterative reconstruction technique--- FINDINGS: Lower chest: Clear Abdomen and pelvis: Liver and biliary system: No focal liver lesion. Gallbladder is normal. No biliary ductal dilatation. Spleen: Unremarkable Pancreas: Unremarkable Adrenal glands: Unremarkable Kidneys: Symmetric nephrograms. No focal renal lesion. No hydronephrosis. No hydroureter. Lymph nodes/retroperitoneum: No abdominal or pelvic lymphadenopathy. Vessels: Aorta is normal in caliber. Circumaortic left renal vein. Bowel/Peritoneal cavity: Appendix is normal. Moderate colonic stool content is seen. No small or large bowel dilatation. No bowel obstruction. Trace pelvic ascites may be physiologic. Mild apparent thickening of the gastric antrum. Right adnexal cyst measures 3.5 cm. Abdominal wall: Trace fat-containing periumbilical hernia is seen. Bladder: Unremarkable trace free pelvic fluid Bones: No aggressive osseous lesion is seen. IMPRESSION: 1. Mild thickening of the gastric antrum may be related to under distended state although gastritis may also result in this appearance. 2. Right adnexal cyst measures 2.5 cm. This can be further assessed by ultrasound. 3. Trace pelvic ascites likely physiologic Electronically signed by: Denver Bell MD (05/31/2020 9:12 PM) ALBERT
--- NOTE | 2020-06-02 07:04 | EKG ---
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
== END 2020-05-31 20:30 | disposition left against medical advice (07) ==
LOC: ER 19:01
DX: R10.84 Generalized abdominal pain (principal); R10.13 Epigastric pain; R55 Syncope and collapse; R11.10 Vomiting, unspecified; Z98.890 Other specified postprocedural states; Z88.5 Allergy status to narcotic agent
CPT/HCPCS: 36415; 74177; 80053; 81001; 81025; 83735; 85025; 87077; 87086; 87186; 93005; 96361; 96374; 96375; 99285; C9113; J2270; J2765; J3490; J7030; Q9967

== ENCOUNTER → 2020-11-08 | Outpatient (CLI) | payer MEDICAID ==
--- NOTE | 2020-11-08 08:27 | RAD ---
EXAMINATION: US PELVIS COMPLETE (PELVIC ULTRASOUND) HISTORY: LT SIDE PELVIC PAIN, IUD TECHNIQUE: Sonography of the pelvis was performed by transabdominal technique. COMPARISON: CT abdomen/pelvis 05/31/2020, pelvic ultrasound 07/07/2019 FINDINGS: Uterus: 8.8 x 4.7 x 3.3 cm - Myometrium: Normal sonographic appearance. - Endometrium: IUD in place. - Cervix: Unremarkable. Right ovary: 5.6 x 4.9 x 3.4 cm - Normal sonographic appearance with 4.1 cm simple appearing cyst, previously 3.6 cm. Arterial and ve nous flow is present throughout the ovary on color Doppler imaging with normal spectral waveforms. Left ovary: 4.0 x 2.2 x 2.7 cm - Normal sonographic appearance. Arterial and venous flow is present throughout the left ovary on col or Doppler imaging with normal spectral waveforms. Pelvic free fluid: None. Other: Prominent shadowing bowel gas incidentally noted at the area of pain in the left lower quadran t. IMPRESSION: No evidence of acute pelvic abnormality. Prominent bowel gas at the area of pain in the left lower quadrant. 4.1 cm right ovarian cyst. Electronically signed by: Jayant Hanley DO (11/08/2020 8:25 AM) [id number]
== END ==
LOC: US 07:44
PROVIDERS: ATTEND Physician Assistant Medical
DX: N83.291 Other ovarian cyst, right side (principal)
CPT/HCPCS: 76856

== ENCOUNTER → 2020-12-08 | Outpatient (CLI) | payer MEDICAID ==
--- NOTE | 2020-12-08 16:26 | RAD ---
INDICATION: Reason: PRODUCTIVE COUGH, FEVER / Spl. Instructions: / History: COMPARISON: February 11, 2019 FINDINGS: 2 view of chest obtained. No focal airspace consolidation. Cardiomediastinal contour unremarkable. No acute osseous abnormality. IMPRESSION: * No focal airspace consolidation or edema. Electronically signed by: Tadeo Guzman MD (12/08/2020 4:24 PM) [id number]
== END ==
LOC: RAD 15:13
PROVIDERS: ATTEND Physician Assistant
DX: R05 Cough (principal); R51.9 Headache, unspecified
CPT/HCPCS: 71046

== ENCOUNTER 2021-05-24 15:25 | Emergency (ER) | payer MEDICAID ==
[~2021-05-24] VITALS: Ht 170.2 cm; Wt 79.3 kg
[2021-05-24] MEDS ORDERED: methylPREDNISolone SOD SUCC PF 125 MG/2 ML VIAL. ONE (15:34)
[2021-05-24] MEDS ORDERED: diphenhydrAMINE 50 MG/ML VIAL ONE (15:34)
[2021-05-24] MEDS ORDERED: FAMOTIDINE 20 MG/2 ML VIAL ONE (15:34)
[2021-05-24] MEDS: IV NORMAL SALINE 1,000ML 1,000 ML IV SCH (15:41)
[2021-05-24] MEDS: diphenhydrAMINE 50 MG/ML VIAL IV ONE (15:42)
[2021-05-24] MEDS: FAMOTIDINE 20 MG/2 ML VIAL IVP ONE (15:42)
[2021-05-24] MEDS: methylPREDNISolone SOD SUCC PF 125 MG/2 ML VIAL. IV ONE (15:42)
--- NOTE | 2021-05-24 15:57 | PHYS DOC ---
Past History Past Medical History: Endometriosis Past Surgical History: , Other Additional Past Surgical Histo: uterine ablasion, knee x 3 Smoking: Non-smoker Alcohol Use: Occasionally Drug Use: None Adult General Chief Complaint Chief Complaint: ALLERGIC REACTION HPI HPI Patient is a 21-year-old female presenting for allergic reaction. She has known history of allergic reactions to bee stings and previously carried an EpiPen. Reports it has been several years since she was last stung that required administration of her EpiPen. Reports prior history of palpitations, skin changes and feelings of shortness of breath but is never been intubated. States the last time she was stung by a bee and gave herself epinephrine she was evaluated and monitored in the ER for several hours and ultimately discharged home. Outside of this past event, she has no prior history of anaphylaxis or prior bee stings. She reports being stung to her right posterior shoulder blade 20 minutes prior to arrival and immediately transported herself to ER for evaluation as she does not own an EpiPen anymore. Has history of endometriosis only, denies tobacco alcohol or recreational drug use. On arrival, she feels hot, states she feels like her right shoulder where she got stung is elevated with generalized hives and skin changes globally Review of Systems Review of Systems Fourteen body systems of review of systems have been reviewed. See HPI for pertinent positives and negative responses, other sullivan all other systems are negative, non-pertinent or non-contributory Current Medications Current Medications Current Medications Medications (Trade) Dose Ordered Sig/Bi Start Time Stop Time Status Last Admin Dose Admin Diphenhydramine HCl (Benadryl) 50 mg 1X ONCE 05/24/21 15:45 05/24/21 15:46 DC 05/24/21 15:42 50 MG Famotidine (Pepcid Vial) 20 mg 1X ONCE 05/24/21 15:45 05/24/21 15:46 DC 05/24/21 15:42 20 MG Methylprednisolone Sodium Succinate (SOLU-Medrol 125MG VIAL) 125 mg 1X ONCE 05/24/21 15:45 05/24/21 15:46 DC 05/24/21 15:42 125 MG Sodium Chloride 1,000 ml @ 1,000 mls/hr Q1H 05/24/21 15:45 05/24/21 16:44 05/24/21 15:41 1,000 MLS/HR Allergies Allergies Allergies Coded Allergies Type Severity Reaction Last Updated Verified codeine Allergy Intermediate 06/21/18 Yes Physical Exam Physical Exam Constitutional: Well developed, well nourished, appears to be in moderate distress and anxious appearing HENT: Normocephalic, atraumatic, bilateral external ears normal, oropharynx moist, tolerating oral secretions without phonation changes, Mallampati score class I, no oral exudates, nose normal. Eyes: PERRLA, EOMI, conjunctiva normal, no discharge. Neck: Normal range of motion, no tenderness, supple, no stridor. Cardiovascular: Heart rate regular, sinus rhythm, no murmurs rubs or gallops Lungs & Thorax: Bilateral breath sounds clear to auscultation Abdomen: Bowel sounds normal, soft, no tenderness, no masses, no pulsatile masses. Nonsurgical abdomen, no peritoneal signs Skin: Warm, dry, patient has erythema with mild induration approximately 1 cm in diameter over right scapular region at point of injury of bee sting without any crepitus or other concerning skin findings, patient does otherwise exhibit generalized hives/raise urticaria to bilateral upper extremities and torso Back: No tenderness, no CVA tenderness. Extremities: No tenderness, no cyanosis, no clubbing, ROM intact, no edema. Neurologic: Alert and oriented X 3, grossly normal motor & sensory function, no focal deficits noted. Psychologic: Anxious affect and mood EKG EKG [] Radiology/Procedures Radiology/Procedures [] Heart Score C/O Chest Pain: No Risk Factors: Risk Factors: DM, Current or recent (<one month) smoker, HTN, HLP, family history of CAD, obesity. Risk Scores: Risk Factors: DM, Current or recent (<one month) smoker, HTN, HLP, family history of CAD, obesity. Course & Med Decision Making Course & Med Decision Making Pertinent Labs and Imaging studies reviewed. (See chart for details) [] Dragon Disclaimer Dragon Disclaimer This electronic medical record was generated, in whole or in part, using a voice recognition dictation system. Departure Departure: Impression: Primary Impression: Allergic reaction to bee sting Disposition: HOME / SELF CARE / HOMELESS Condition: STABLE Referrals: MIGUEL A ANAYA (PCP) Additional Instructions: You were seen for a possible allergic reaction. You should take the entire course of steroids as prescribed. You need to follow up in the allergy or medicine clinic for further evaluation. The known bee sting to your right shoulder caused your reaction. As disclosed, it was recommended he stay in the ER setting for a longer observation before departure home but you requested to leave which is understandable. As such, please ensure that if you start to have shortness of breath, facial swelling, tongue swelling, difficulty swallowing, or any other concerning symptoms you should take your epipen and call 911 to return to the ED. Scripts Famotidine (FAMOTIDINE) 40 Mg Tablet 1 TAB PO DAILY for ALLERGIC REACTION for 7 Days, #7 TAB 0 Refills Prov: TYREL RING DO 05/24/21 Prednisone (PREDNISONE) 20 Mg Tablet 40 MG PO DAILY for ALLERGIC REACTION for 5 Days, #10 TAB Prov: TYREL RING DO 05/24/21 Epinephrine (Epipen) 0.3 Mg/0.3 Ml Auto.injct 0.3 MG IM UD for ALLERGIC REACTION, #1 SYR 0 Refills Prov: TYREL RING DO 05/24/21 TYREL RING DO May 24, 2021 15:56
[2021-05-24] MEDS ORDERED: EPIN0.3A3 IM (16:44)
[2021-05-24] MEDS ORDERED: PRED20TA PO (16:44)
[2021-05-24] MEDS ORDERED: FAMO40TA4 PO (16:44)
[2021-05-24 16:45] VITALS: BP 121/63
== END 2021-05-24 16:48 | disposition home or self-care (01) ==
LOC: ER 15:25
DX: T78.40XA Allergy, unspecified, initial encounter (principal); Z88.5 Allergy status to narcotic agent; X58.XXXA Exposure to other specified factors, initial encounter
CPT/HCPCS: 96361; 96374; 96375; 99284; J1200; J2930; J3490; J7030

== ENCOUNTER 2021-06-22 14:23 | Emergency (ER) | payer MEDICAID ==
[~2021-06-22] VITALS: Ht 170.2 cm; Wt 80.0 kg
[~2021-06-22 14:23] MED LIST changes: +EPIN0.3A3 IM; +FAMO40TA4 PO; +PRED20TA PO
[2021-06-22] MEDS: ACETAMINOPHEN 325 MG TABLET PO ONE (14:30)
[2021-06-22 14:32] VITALS: BP 122/78
--- NOTE | 2021-06-22 15:17 | PHYS DOC ---
Past History Past Medical History: Endometriosis Past Surgical History: , Other Additional Past Surgical Histo: uterine ablasion, knee x 3 Smoking: Non-smoker Alcohol Use: Occasionally Drug Use: None General Adult EDM: Chief Complaint: MULTIPLE COMPLAINTS HPI: HPI: Patient is a 21 year old female with history of multiple allergic triggers who presents with rash and sore throat status post Covid vaccination. Patient states at 1245, she had her first dose of the Pfizer Covid vaccine. Immediately after, she states her skin became "blotchy," and she had a dry mouth and sore throat. She was administered a "shot of Benadryl" at 1345. She now has additional complaint of headache. Patient denies vision changes, weakness, fatigue, chest pain, palpitations, shortness of breath, cough, mouth or throat swelling. Review of Systems: Review of Systems: ROS negative except as mentioned in HPI. Current Medications: Current Meds: Current Medications Medications (Trade) Dose Ordered Sig/Bi Start Time Stop Time Status Last Admin Dose Admin Acetaminophen (Tylenol) 650 mg 1X ONCE 06/22/21 14:30 06/22/21 14:31 DC 06/22/21 14:30 650 MG Allergies: Allergies: Allergies Coded Allergies Type Severity Reaction Last Updated Verified codeine Allergy Intermediate 06/21/18 Yes Bleach (Sodium Hypochlorite) Allergy Unknown 06/22/21 Yes bee venom protein (honey bee) Allergy Unknown 06/22/21 Yes cat dander Allergy Unknown 06/22/21 Yes ibuprofen Allergy Unknown 06/22/21 Yes magnesium sulfate Allergy Unknown 06/22/21 Yes medroxyprogesterone Allergy Unknown 06/22/21 Yes peanut Allergy Unknown 06/22/21 Yes Physical Exam: PE: Constitutional: Well developed, well nourished, no acute distress, non-toxic appearance. HENT: Normocephalic, atraumatic, bilateral external ears normal, oropharynx moist, no oral exudates, nose normal. Eyes: PERRLA, EOMI, conjunctiva normal, no discharge. Neck: Normal range of motion, no tenderness, supple, no stridor. Cardiovascular:Heart rate regular rhythm, no murmur. Lungs & Thorax: Bilateral breath sounds clear to auscultation. Abdomen: Bowel sounds normal, soft, no tenderness, no masses, no pulsatile masses. Skin: Warm, dry, no erythema, no rash. Current Patient Data: Vital Signs: Vital Signs Date Time Temp Pulse Resp B/P (MAP) Pulse Ox O2 Delivery O2 Flow Rate FiO2 06/22/21 14:32 98.2 92 18 122/78 (93) 97 Heart Score: C/O Chest Pain: No Course & Med Decision Making: Course & Med Decision Making Pertinent Labs and Imaging studies reviewed. (See chart for details) Due to patient adverse reaction to ibuprofen, patient was provided with acetaminophen to treat her headache. As she has no visible rash or urticaria at this time, it seems as though the Benadryl did resolve those symptoms. Patient was instructed to take 50 mg Benadryl at night as well as an [id number] daily antihistamine in the mornings. She was also advised that she can take 50 mg of Benadryl half hour prior to her second vaccine dose administration. Patient understands and agreeable to discharge plan. Dragon Disclaimer: Dragon Disclaimer: This electronic medical record was generated, in whole or in part, using a voice recognition dictation system. Departure Departure: Impression: Primary Impression: Vaccine reaction Qualified Codes: T50.Z95A - Adverse effect of other vaccines and biological substances, initial encounter Disposition: HOME / SELF CARE / HOMELESS Condition: STABLE Referrals: MIGUEL A ANAYA (PCP) Patient Instructions: Rash Additional Instructions: As discussed, you may take 2 tablets (50 mg) of Benadryl before bed. Additionally, take ovid-viv-qmyakxt daily antihistamine in the morning. Over the next few days, your symptoms should improve. If they do not, you may follow-up with your primary care physician. Before your second dose of the Covid vaccine, you may take 2 tablets of Benadryl prophylactically. Follow the same regimen after that vaccine should she have the same reaction. Please return to the emergency department if any of your symptoms worsen. JADE MEDINA Jun 22, 2021 15:17
== END 2021-06-22 15:27 | disposition home or self-care (01) ==
LOC: ER 14:23
DX: T88.1XXA Other complications following immunization, not elsewhere classified, initial encounter (principal); R21 Rash and other nonspecific skin eruption; Z91.010 Allergy to peanuts; Z88.5 Allergy status to narcotic agent
CPT/HCPCS: 99283-25

== ENCOUNTER → 2021-08-03 | Outpatient (CLI) | payer MEDICAID ==
--- NOTE | 2021-08-03 13:49 | RAD ---
XR CHEST 2V History: Cough for 4 days Comparison: 12/08/2020 Technique: PA and lateral chest radiographs. Findings: The lungs are adequately and symmectrically inflated. No airspace consolidation, pleural effusion or pneumothorax. The cardiomediastinal silhoutte and pulmonary vasculature are within normal limits. Sof t tissues and osseous structures are unremarkable. Impression: 1. No acute cardiopulmonary process. Electronically signed by: Jalen Escalante MD (08/03/2021 1:46 PM) [id number]
== END ==
LOC: RAD 13:21
PROVIDERS: ATTEND Physician Assistant Medical
DX: J06.9 Acute upper respiratory infection, unspecified (principal)
CPT/HCPCS: 71046

== ENCOUNTER 2021-08-11 13:43 | Emergency (ER) | payer MEDICAID ==
[~2021-08-11] VITALS: Ht 170.2 cm; Wt 83.2 kg
[2021-08-11 14:41] VITALS: BP 137/73
--- NOTE | 2021-08-11 15:19 | PHYS DOC ---
Past History Past Medical History: Endometriosis Additional Past Medical Histor: endometriosis Past Surgical History: No Surgical History Additional Past Surgical Histo: uterine ablasion, knee x 3 Smoking: Non-smoker Alcohol Use: Occasionally Drug Use: None General Adult EDM: Chief Complaint: SKIN RASH/ABSCESS HPI: HPI: 21-year-old female presents mass in her groin area. She has had this on the left side for about 6 months. He is usually very firm. She decided come in today because she feels like it is hurting more and it is gotten bigger. She did attempt to pop it yesterday with her fingernails and had no discharge. This made it more uncomfortable. She has been on multiple rounds of antibiotics in the past and has never gone away. She has no other complaints this time. Review of Systems: Review of Systems: Constitutional: Denies fever or chills Eyes: Denies change in visual acuity HENT: Denies nasal congestion or sore throat Respiratory: Denies cough or shortness of breath Cardiovascular: Denies chest pain or edema GI: Denies abdominal pain, nausea, vomiting, bloody stools or diarrhea : Skin mass groin area Musculoskeletal: Denies back pain or joint pain Integument: Denies rash Neurologic: Denies headache, focal weakness or sensory changes Endocrine: Denies polyuria or polydipsia Lymphatic: Denies swollen glands Psychiatric: Denies depression or anxiety Allergies: Allergies: Allergies Coded Allergies Type Severity Reaction Last Updated Verified codeine Allergy Intermediate 06/21/18 Yes Bleach (Sodium Hypochlorite) Allergy Unknown 06/22/21 Yes bee venom protein (honey bee) Allergy Unknown 06/22/21 Yes cat dander Allergy Unknown 06/22/21 Yes ibuprofen Allergy Unknown 06/22/21 Yes magnesium sulfate Allergy Unknown 06/22/21 Yes medroxyprogesterone Allergy Unknown 06/22/21 Yes peanut Allergy Unknown 06/22/21 Yes Physical Exam: PE: Constitutional: Well developed, well nourished, no acute distress, non-toxic appearance. [] HENT: Normocephalic, atraumatic, bilateral external ears normal, oropharynx moist, no oral exudates, nose normal. [] Eyes: PERRLA, EOMI, conjunctiva normal, no discharge. [] Neck: Normal range of motion, no tenderness, supple, no stridor. [] Cardiovascular:Heart rate regular rhythm, no murmur [] Lungs & Thorax: Bilateral breath sounds clear to auscultation [] Abdomen: Bowel sounds normal, soft, no tenderness, no masses, no pulsatile masses. [] Skin: Warm, dry, no erythema, no rash. [] Back: No tenderness, no CVA tenderness. [] Extremities: No tenderness, no cyanosis, no clubbing, ROM intact, no edema. [] Neurologic: Alert and oriented X 3, normal motor function, normal sensory function, no focal deficits noted. [] Psychologic: Affect normal, judgement normal, mood normal. : 5 mm soft nodule lateral and inferior to the left labia. No palpable abscess, no surrounding erythema or warmth. [] Current Patient Data: Vital Signs: Vital Signs Date Time Temp Pulse Resp B/P (MAP) Pulse Ox O2 Delivery O2 Flow Rate FiO2 08/11/21 14:41 97.1 90 16 137/73 (94) 99 Room Air EKG: EKG: [] Radiology/Procedures: Radiology/Procedures: [] Heart Score: C/O Chest Pain: N/A Risk Factors: Risk Factors: DM, Current or recent (<one month) smoker, HTN, HLP, family history of CAD, obesity. Risk Scores: Score 0 - 3: 2.5% MACE over next 6 weeks - Discharge Home Score 4 - 6: 20.3% MACE over next 6 weeks - Admit for Clinical Observation Score 7 - 10: 72.7% MACE over next 6 weeks - Early Invasive Strategies Course & Med Decision Making: Course & Med Decision Making Pertinent Labs and Imaging studies reviewed. (See chart for details) The nurse, Kristen Cameron accompanied me for the exam. It appears as though the patient has a type of dermal cyst in this area. I did not palpate a fluctuant area that I thought could be drained. There is also no surrounding cellulitis. I suspect that when she squeezed it yesterday she caused a partial rupture of the inner sac and that is why she has increased irritation as well as the area being softer than usual. I suggested that she follow-up with [facility] and possibly dermatology to see if they will excise the area. Patient states verbal understanding. Antibiotics not indicated at this time. She is stable for discharge. [] Dragon Disclaimer: Dragon Disclaimer: This electronic medical record was generated, in whole or in part, using a voice recognition dictation system. Departure Departure: Impression: Primary Impression: Ganglion cyst of left groin Disposition: HOME / SELF CARE / HOMELESS Condition: STABLE Referrals: MIGUEL A ANAYA (PCP) Patient Instructions: Ganglion Cyst PEE JERRY DO Aug 11, 2021 15:19
== END 2021-08-11 15:29 | disposition home or self-care (01) ==
LOC: ER 13:43
DX: M67.472 Ganglion, left ankle and foot (principal); Z88.5 Allergy status to narcotic agent; Z91.018 Allergy to other foods
CPT/HCPCS: 99281-25